=== PATIENT | male | born 1965 | race Asian ===

== ENCOUNTER 2021-11-23 09:21 | Outpatient (CLI) | payer OTHER ==
[2021-11-23 14:14] LABS: BASOPHILS % (AUTO) 0.7 %; EOSINOPHILS # (AUTO) 0.1 10^3/uL (0.0-0.7); EOSINOPHILS % (AUTO) 2.2 %; HCT - HEMATOCRIT 49.9 % (42.0-52.0); HGB - HEMOGLOBIN 16.3 g/dL (14.0-18.0); LYMPHOCYTES # (AUTO) 0.9 10^3/uL (1.5-3.5); LYMPHOCYTES % (AUTO) 16.1 %; MEAN CORPUSCULAR HEMOGLOBIN 32.2 pg (27.0-31.0); MEAN CORPUSCULAR HGB CONC 32.7 g/dL (32.0-36.0); MEAN CORPUSCULAR VOLUME 98.6 fL (80.0-94.0); MONOCYTES # (AUTO) 0.5 10^3/uL (0.0-1.0); MONOCYTES % (AUTO) 8.8 %; NEUTROPHILS # (AUTO) 3.9 10^3/uL (1.5-6.6); PLT - PLATELET COUNT 226 10^3/uL (130-450); RED BLOOD COUNT 5.06 10^6/uL (4.70-6.10); RED CELL DISTRIBUTION WIDTH 12.4 % (12.0-15.0); WHITE BLOOD COUNT 5.5 x10^3/uL (4.8-10.8)
[2021-11-23 15:07] LABS: ALBUMIN 4.9 g/dL (3.2-5.5); BILIRUBIN,TOTAL 1.1 mg/dL (0.2-1.0); CALCIUM 9.7 mg/dL (8.5-10.3); CREATININE 0.9 mg/dL (0.6-1.2); MAGNESIUM 2.4 mg/dL (1.7-2.8); POTASSIUM 4.5 mmol/L (3.5-5.0); TOTAL PROTEIN 7.4 g/dL (6.7-8.2)
[2021-11-23 15:12] LABS: THYROID STIMULATING HORMONE 1.21 uIU/mL (0.34-5.60)
[2021-11-23 15:16] LABS: FERRITIN 89.3 ng/mL (23.9-336.2)
== END 2021-11-23 09:22 | disposition home or self-care (01) ==
LOC: LAB.S 09:21
PROVIDERS: ATTEND Physician Assistant Medical
DX: I10 Essential (primary) hypertension (principal); R25.3 Fasciculation
CPT/HCPCS: 36415; 80053; 82728; 83735; 84443; 85025